=== PATIENT | female | born 2000 ===

== ENCOUNTER → 2023-08-13 09:21 | Outpatient (CLI) | payer SELFPAY ==
--- NOTE | 2023-08-13 09:31 | US_ITS ---
FINAL REPORT TECHNIQUE: Ultrasound images of the abdomen were obtained. CLINICAL HISTORY: Right upper quadrant abdominal pain for several weeks COMPARISON: None FINDINGS: ABDOMINAL ULTRASOUND COMPLETE: There is a 7 mm hyperechoic nodule in the mid right lobe of the liver consistent with a small hemangioma. There is a trace amount of sludge in the gallbladder. The common duct is normal. The right kidney measures 11.4 cm in length and is normal in echogenicity without hydronephrosis. The left kidney measures 12.4 cm in length and is normal in echogenicity without hydronephrosis. The spleen is unremarkable. The pancreas is obscured by overlying bowel gas. The visualized portions of the aorta and the IVC are normal. The vena cava is unremarkable. IMPRESSION: Small liver hemangioma. Trace sludge in the gallbladder Reviewed, Interpreted and Dictated by Maurice Condon MD Transcribed by Zahraa Hart Authenticated and [facility]
== END ==
PROVIDERS: PCP Nurse Practitioner Family; Visit Provider Nurse Practitioner Family
DX: R10.9 Unspecified abdominal pain (principal)
CPT/HCPCS: 76700